=== PATIENT | male | born 1995 | race Caucasian/White ===

== ENCOUNTER 2018-10-02 10:38 | Emergency (ER) | payer MEDICAID, OTHER ==
[~2018-10-02] VITALS: Ht 172.7 cm; Wt 71.0 kg
[2018-10-02 10:44] VITALS: BP 133/70; PULSE 96; RESP 18; Ht 172.7 cm; Wt 71.0 kg
[2018-10-02] MEDS ORDERED: IBUP-1542 PO (11:56)
[2018-10-02] MEDS ORDERED: DOCU-144 PO (11:56)
--- NOTE | 2018-10-02 11:59 | ERD ---
ER Documentation Chief Complaint Chief Complaint right lower abdominal pain x 1 week HPI 23-year-old male presents with swelling and pain in his right lower abdomen for last week. Started after playing soccer. Denies any fevers, vomiting, pain in the testicles, urinary complaints. ROS All systems reviewed and are negative except as per history of present illness. Medications Home Meds Active Scripts Docusate Sodium* (Colace*) 100 Mg Capsule, 100 MG PO q day, #30 CAP Prov:JOSE GUTIERREZ MD 10/02/18 Ibuprofen* (Motrin*) 600 Mg Tab, 600 MG PO Q6, #20 TAB Prov:JOSE GUTIERREZ MD 10/02/18 FmHx Family History: No diabetes, No coronary disease, No other Physical Exam Vitals Vital Signs Date Temp Pulse Resp B/P (MAP) Pulse Ox O2 O2 Flow FiO2 Time Delivery Rate 10/02/18 97.8 96 18 133/70 99 10:44 (91) Physical Exam Const: No acute distress Head: Atraumatic Eyes: Normal Conjunctiva ENT: Normal External Ears, Nose and Mouth. Neck: Full range of motion. No meningismus. Resp: Clear to auscultation bilaterally Cardio: Regular rate and rhythm, no murmurs Abd: Soft, non tender, non distended. Normal bowel sounds. Patient has a moderate sized right indirect inguinal hernia. Testicles nontender descended normal size bilaterally. Skin: No petechiae or rashes Back: No midline or flank tenderness Ext: No cyanosis, or edema Neur: Awake and alert Psych: Normal Mood and Affect Procedures/MDM Right inguinal hernia is easily reducible. Presents with signs and symptoms of right indirect inguinal hernia without signs of incarceration, strangulation, obstruction. We discharged home with recommendations for hernia belt, ibuprofen, Colace to prevent constipation and avoidance of lifting or straining. He is advised to see general surgery for evaluation for elective surgery. He was advised he may need authorization from primary doctor for general surgery visit. He is advised to return for fevers, vomiting, new or worsening symptoms. The patient was stable with no new complaints during the ER course. Clinically, there is no current evidence to suggest meningitis, sepsis, acute abdomen, pneumonia, stroke, acute coronary syndrome, pulmonary embolism, aortic dissection or any other emergent condition appearing to require further evaluation or hospitalization. Patient counseled regarding my diagnostic impression and care plan. Prior to discharge all questions answered. Pt agrees with treatment plan and understands strict return precautions. Pt is instructed to follow up with primary care provider within 24- 48 hours. Precautionary instructions provided including instructions to return to the ER if not improving or for any worsening or changing symptoms or concerns. Departure Diagnosis: Primary Impression: Inguinal hernia of right side without obstruction or gangrene Condition: Stable Patient Instructions: Hernia (Inguinal, Ventral, Umbilical) Referrals: Stella CORREA KAMBIZ M.D. LOMIS, THOMAS MD Additional Instructions: See general surgeon for evaluation for surgery. May need authorization from primary doctor for surgery evaluation.. Recheck for fevers, vomiting, new or worsening symptoms. JOSE GUTIERREZ MD Oct 02, 2018 11:59
== END 2018-10-02 13:18 | disposition home or self-care (01) ==
LOC: FTE 10:38
DX: K40.90 Unilateral inguinal hernia, without obstruction or gangrene, not specified as recurrent (principal)
CPT/HCPCS: 99283